=== PATIENT | female | born 1960 | race Caucasian/White ===

== ENCOUNTER → 2017-08-06 13:03 | Outpatient (CLI) | payer OTHER, SELFPAY ==
--- OUTSIDE RECORDS SUMMARY | 2017-08-06 13:08 | XMS RPT_ITS ---
:1960 Author Organization [facility] Care Team Providers Name Role Phone Jc Cornelius Attending Unavailable Jc Cornelius Referring Unavailable Jc Cornelius Primary Care Unavailable PROBLEMS PROBLEMS No Problem Records FoundPROCEDURES PROCEDURES No Procedure Records FoundRESULTS RESULTS No Result Records FoundALLERGIES ALLERGIES DATE TYPE / CODE NAME / CODE REACTION SEVERITY SOURCE 03/12/2015 Drug No Known Unknown [facility] Allergy/4160 Allergies/F00 Hospital [address]299(SNOMED [id number](RXNOR Repository CT) M) ENCOUNTERS ENCOUNTERS ADMIT/DISCHARGE ACCOUNT ADMITTING ENCOUNTER LOCATION SOURCE NUMBER CLASS 08/06/2017 [id number] Ambulatory [address] ing:MRI Repository PAYERS PAYERS ENCOUNTER GUARANTOR PAYER SUBSCRIBER SOURCE 08/06/2017 Margarita Dennisont2079 Primary Margaritadawson SerranoDOB: [place] Insurance:[facility] [id number] [place] [address]Dfb: [phone]) Number: Repository [phone] ) [id number] Date:2017-08-02[address] [address], [place] [address]XR: 08/06/2017 Secondary NOT GIVENUNK [place] Insurance:SELF PAY [facility] Number: Effective Repository Date:2017-08-02
--- NOTE | 2017-08-06 13:45 | MRI_ITS ---
STUDY: MRI LUMBAR SPINE WITHOUT CONTRAST REASON FOR EXAM: Female, 57 years old. Left lower back pain, left leg pain x 1 year or more, NKI TECHNIQUE: Standardized fat and water weighted pulse sequences were obtained in the sagittal and axial planes. COMPARISON: X-ray July 01, 2015 FINDINGS: There is motion artifact. Normal lumbar lordosis. There is a levoscoliosis of the lumbar spine. Normal conus medullaris that terminates at the L1-2 level. There is retrolisthesis at L4-5. There is loss of disc height at L3-4 through L5-S1. Vertebral body heights are maintained. The bone marrow signal is normal. There is multilevel facet arthropathy and ligamentum flavum hypertrophy. T12/L1: Sagittal images only were obtained. Normal. L1/2: No disc bulge or herniation or central canal or neural foraminal stenosis is demonstrated. L2/3: No disc bulge or herniation or central canal or neural foraminal stenosis is demonstrated. L3/4: There is a diffuse bulge slightly larger on the left. There is a punctate left foraminal annular tear. There is moderate to severe central canal stenosis and moderate left and mild right neuroforaminal stenosis. L4/5: There is a diffuse bulge slightly larger on the left. There is moderate to severe central canal stenosis and severe left and moderate right neuroforaminal stenosis. L5/S1: There is a diffuse bulge. There is no central canal stenosis. There is moderate to severe left and moderate right neuroforaminal stenosis. Normal visualized sacral ala. Normal visualized paraspinous soft tissue structures. MRI/Spine Lumbar (Routine) IMPRESSION: Multilevel degenerative changes, as described above. There is a levoscoliosis. L3/4: There is a diffuse bulge slightly larger on the left. There is a punctate left foraminal annular tear. There is moderate to severe central canal stenosis and moderate left and mild right neuroforaminal stenosis. L4/5: There is a diffuse bulge slightly larger on the left. There is moderate to severe central canal stenosis and severe left and moderate right neuroforaminal stenosis. L5/S1: There is a diffuse bulge. There is moderate to severe left and moderate right neuroforaminal stenosis. Electronically Signed: Ginger Iqbal MD at 15:36 EST , Service support ,
== END ==
PROVIDERS: Family Provider Family Medicine; PCP Family Medicine; Visit Provider Family Medicine
DX: M51.16 Intervertebral disc disorders with radiculopathy, lumbar region (principal); M48.07 Spinal stenosis, lumbosacral region; M41.86 Other forms of scoliosis, lumbar region
CPT/HCPCS: 72148